=== PATIENT | female | born 1965 | race African-American/Black ===

== ENCOUNTER 2016-07-03 08:06 | Observation (INO) | payer OTHER ==
[2016-07-03] VITALS (12 sets, daily range): BP systolic 111–136; BP diastolic 62–96
[~2016-07-03] VITALS: Ht 154.9 cm; Wt 70.8 kg
[~2016-07-03 08:06] MED LIST: BUPIVACAINE-EPI 0.25%-1:200000 MPF 30 ML VIAL. ONE; CEFAZOLIN 1GM IVPB FOR OMNI 50 ML IV PRN; CEFOXITIN 1GM IVPB FOR OMNI 50 ML IV PRN; DIPH25CA58 PO; ESTROGENS, CONJ VAGINAL CREAM 30GM TUBE. ONE; FENTANYL PF 100 MCG/2 ML VIAL. IV PRN; HYDR-971 PO; HYDROMORPHONE 2 MG/ML VIAL. IV PRN; IBUP200T43 PO; LIDOCAINE 1% 1 ML SYRINGE. ID PRN; LIDOCAINE 1%/EPI 1:100,000 20 ML VIAL. ONE; METHYLENE BLUE 1% 1 ML VIAL. ONE; ONDA8TAB9 PO; ONDANSETRON PF 4 MG/2 ML VIAL. IV PRN; PRED-220 PO; PRED20TA PO; PROCHLORPERAZINE 10 MG/2 ML VIAL. IV PRN; RANI150T6 PO; SURGICEL HEMOSTAT 4X8 EACH. ONE
[2016-07-03] MEDS: IV RINGERS,LACTATED 1000ML 1,000 ML IV SCH ×2 (08:42→15:53)
[2016-07-03] MEDS ORDERED: ONDANSETRON PF 4 MG/2 ML VIAL. ONE (08:48)
[2016-07-03] MEDS ORDERED: FENTANYL PF 100 MCG/2 ML VIAL. ONE ×2 (08:48→11:54)
[2016-07-03] MEDS ORDERED: LIDOCAINE 2% 100 MG/5 ML DISP.SYRIN. ONE (08:48)
[2016-07-03] MEDS ORDERED: PROPOFOL 20 ML IV ONE (08:48)
[2016-07-03] MEDS ORDERED: ROCURONIUM 50 MG/5 ML VIAL. ONE (08:48)
[2016-07-03] MEDS ORDERED: MIDAZOLAM HCL 2 MG/2 ML VIAL. ONE (08:48)
[2016-07-03] MEDS ORDERED: DEXAMETHASONE SOD PHOS 20 MG/5 ML VIAL. ONE (08:48)
[2016-07-03] MEDS ORDERED: CEFAZOLIN 1GM IVPB FOR OMNI 50 ML IV ONE ×2 (08:54→09:15)
[2016-07-03] MEDS ORDERED: HYDROCORTISONE SOD SUCC/PF 100 MG/2 ML VIAL. ONE (09:17)
[2016-07-03 09:43] LABS: NEG OBC UR NEG; POS OBC UR POS
[2016-07-03 09:46] LABS: BASO % 0 % (0-3); EOS % 0 % (0-3); HEMATOCRIT 37.5 % (36.0-47.0); LYMPH # 0.7 x10^3/uL (1.0-4.8); LYMPH % 5 % (24-48); MEAN CORPUSCULAR HEMOGLOBIN 28 pg (25-35); MEAN CORPUSCULAR HGB CONC 32 g/dL (31-37); MEAN CORPUSCULAR VOLUME 87 fL (79-100); MONO % 4 % (0-9); NEUT % 91 % (31-73); PLATELET COUNT 394 x10^3/uL (140-400); RED BLOOD COUNT 4.32 x10^6/uL (3.50-5.40); RED CELL DISTRIBUTION WIDTH 15.4 % (11.5-14.5); WHITE BLOOD COUNT 15.1 x10^3/uL (4.0-11.0)
[2016-07-03] MEDS ORDERED: FAMOTIDINE 20 MG/2 ML VIAL ONE (09:55)
[2016-07-03] MEDS ORDERED: GLYCOPYRROLATE 1 MG/5 ML VIAL. ONE (10:26)
[2016-07-03] MEDS ORDERED: NEOSTIGMINE METHYLSULFATE 5 MG/5 ML SYRINGE. ONE (10:27)
[2016-07-03] MEDS ORDERED: SEVOFLURANE 61 TO 120 MINUTES. IH ONE (10:27)
[2016-07-03 11:06] LABS: PLT ESTIMATE ADEQUATE (ADEQUATE)
[2016-07-03 11:07] LABS: ANISOCYTOSIS SLIGHT
[2016-07-03 11:08] LABS: TOXIC GRANULATION PRESENT
[2016-07-03] MEDS ORDERED: KETOROLAC 30 MG/ML SYRINGE FOR OR. INJ ONE (11:09)
[2016-07-03] MEDS ORDERED: SEVOFLURANE > 120 MINUTES. IH ONE (11:54)
--- NOTE | 2016-07-03 12:08 | PDOC ---
BRIEF OPERATIVE NOTE Pre-Op Diagnosis 1. Fibroids 2. AUB Post-Op Diagnosis Same Procedure Performed LAVH & BSO Surgeon Dr. Lauren Anesthesia Type: General Blood Loss 100 ml Specimens Obtained uterus, cervix, nidia. fallopian tubes and ovaries Findings enlarged, fibroid uterus, nml fallopian tubes and ovaries nidia. Complications none Additional Remarks pt. VALORIE Obregon Jr, MD Jul 03, 2016 12:08
[2016-07-03] MEDS ORDERED: ZOLPIDEM 5 MG TABLET. PO PRN (12:15)
[2016-07-03] MEDS ORDERED: SIMETHICONE 80 MG TAB.CHEW PO PRN (12:15)
[2016-07-03] MEDS ORDERED: DIPHENHYDRAMINE HCL 25 MG CAPSULE PO PRN (12:15)
[2016-07-03] MEDS ORDERED: DEXTROSE 50% 25 GM / 50ML DISP.SYRIN. IV PRN (12:15)
[2016-07-03] MEDS ORDERED: 0.9 % SODIUM CHLORIDE 10 ML DISP.SYRIN. IV PRN (12:15)
[2016-07-03] MEDS ORDERED: CALCIUM CARBONATE 500 MG TAB.CHEW PO PRN (12:15)
[2016-07-03] MEDS ORDERED: PROCHLORPERAZINE 10 MG/2 ML VIAL. IV PRN (12:15)
[2016-07-03] MEDS ORDERED: DIPHENHYDRAMINE 50 MG/ML VIAL IV PRN (12:15)
[2016-07-03] MEDS ORDERED: ONDANSETRON PF 4 MG/2 ML VIAL. IV PRN (12:15)
[2016-07-03] MEDS ORDERED: KETOROLAC TROMETHAMINE 30 MG/ML SYRINGE. IV PRN (12:15)
[2016-07-03] MEDS: FENTANYL PF 100 MCG/2 ML VIAL. IV PRN ×2 (12:57→13:06)
[2016-07-03] MEDS: MORPHINE SULFATE 2 MG/ML DISP.SYRIN. IV PRN ×2 (13:22→13:34)
[2016-07-03] MEDS: GABAPENTIN 300 MG CAPSULE. PO SCH ×2 (14:01→22:05)
[2016-07-03] MEDS ORDERED: HYDROMORPHONE 2 MG/ML VIAL. IV PRN (16:45)
[2016-07-04 00:52] VITALS: BP 130/77
[2016-07-04] MEDS: OXYCODONE/APAP 5/325 TABLET. PO PRN ×2 (03:37→10:16)
--- NOTE | 2016-07-04 04:34 | OP ---
DATE OF SURGERY: PREOPERATIVE DIAGNOSES: 1. Fibroids. 2. Abnormal uterine bleeding. POSTOPERATIVE DIAGNOSES: 1. Fibroids. 2. Abnormal uterine bleeding. PROCEDURE: LAVH and BSO. SURGEON: Valorie Lauren MD ANESTHESIA: GETA. ESTIMATED BLOOD LOSS: 100 mL. COMPLICATIONS: None. FINDINGS: Enlarged fibroid uterus, normal fallopian tubes and ovaries bilaterally. SUMMARY: A 50-year-old with long history of abnormal uterine bleeding and fibroid uterus, requiring hysterectomy. The patient was counseled on risks, benefits and expectations of LAVH and BSO and voiced a clear understanding to proceed. DESCRIPTION OF PROCEDURE: The patient was taken to surgery suite and placed in dorsal lithotomy position. She was prepped with Betadine solution and draped in sterile fashion, also prepped with ChloraPrep for abdominal prep. The internal vaginal prep was done with the hypoallergenic soap. So after adequate anesthesia, bivalve speculum was placed vaginally. Anterior lip of the cervix grasped with a single tooth tenaculum. The Valtchev uterine manipulator was then placed. The bivalve speculum was removed. Attention was now placed on abdomen. Small transverse skin incision was made just 2 fingerbreadths below the left subcostal margin with a scalpel. Veress needle was then placed through the subcostal margin of the incision site. The abdomen was allowed to insufflate up to 1-1/2 liters CO2 gas. The Veress needle was then removed, 5 mm trocar was placed. Scope was positioned. The uterus appeared very enlarged with multiple fibroids throughout the uterus. Fallopian tubes and ovaries appeared normal bilaterally. An incision made just below the umbilicus with scalpel as well as in the left lower quadrant and 5 mm trocars were placed respectively. With the aid of Ariel graspers and the EnSeal device, the right round ligament was coagulated and dissected. The right infundibulopelvic ligament was coagulated and dissected. A portion of the right broad ligament was coagulated and dissected. Same process took place for the left adnexa. Bladder flap was partially created with blunt dissection along with EnSeal device and hydrodissection. The uterus was very enlarged and difficult to mobilize. Therefore, we proceeded vaginally. Weighted speculum and curved Huntington placed vaginally. The single tooth tenaculum and Valtchev uterine manipulator were both removed. Stella clamps were placed on the anterior and posterior lip of the cervix. Cervix was injected with 1% lidocaine with epinephrine in circumferential manner. Bovie cautery was utilized to circumscribe the cervix. The vaginal mucosa then dissected away from the lower uterine segment using blunt dissection with a moist Ray-Vernell. The parametrial tissue was clamped bilaterally with curved Annia clamps, cut and suture ligated with 2-0 Vicryl suture. The posterior cul-de-sac was entered sharply with curved Vail scissors. The long weighted speculum was then placed. Uterosacral ligaments were clamped bilaterally, cut, and suture ligated. Cardinal ligaments clamped bilaterally, cut, and suture ligated. Two additional pedicles were taken just adjacent to the uterus, which were clamped, cut, and suture ligated. The uterus was then bivalved. Multiple fibroids were then enucleated as well as ____ to collapse the uterus. This was done until the uterus was removed in its entirety along with both fallopian tubes and ovaries. The pedicles were hemostatic. A modified Reyes's culdoplasty was performed incorporating the uterosacral ligaments bilaterally. The remainder of the vaginal cuff was reapproximated using 2-0 Vicryl suture in a [id number] manner. A Premarin soaked vaginal packing was then placed. Attention was once again placed on abdomen. The abdomen was allowed to insufflate up to 1-1/2 liters of CO2 gas. The scope was positioned. The posterior vaginal cuff was visualized and the pedicles were hemostatic. There was some peritoneal oozing on the left pelvic sidewall in which Leon was placed and then followed by 5 mL of FloSeal. The area was hemostatic. The trocars were then removed under direct visualization. The abdomen was allowed to deflate as much as possible along with mechanical manipulation. The three skin incisions were reapproximated using 4-0 Vicryl suture in subcuticular manner. A 0.25% Marcaine with epinephrine was injected at each incision site. The patient tolerated the procedure well and was taken to recovery room in stable condition. Sponge and needle counts correct x 3. VALORIE LAUREN MD DR: BUZZ/aleshia JOB#: [id number] / [id number]
[2016-07-04 04:50] VITALS: BP 111/72
[2016-07-04] MEDS: GABAPENTIN 300 MG CAPSULE. PO SCH (06:01)
[2016-07-04 06:42] LABS: BASO % 0 % (0-3); EOS % 0 % (0-3); HEMATOCRIT 30.1 % (36.0-47.0); HEMOGLOBIN 9.6 g/dL (12.0-15.5); LYMPH # 1.1 x10^3/uL (1.0-4.8); LYMPH % 7 % (24-48); MEAN CORPUSCULAR HEMOGLOBIN 28 pg (25-35); MEAN CORPUSCULAR HGB CONC 32 g/dL (31-37); MEAN CORPUSCULAR VOLUME 87 fL (79-100); MONO % 6 % (0-9); NEUT % 87 % (31-73); PLATELET COUNT 319 x10^3/uL (140-400); RED BLOOD COUNT 3.44 x10^6/uL (3.50-5.40); RED CELL DISTRIBUTION WIDTH 15.6 % (11.5-14.5); WHITE BLOOD COUNT 15.6 x10^3/uL (4.0-11.0)
[2016-07-04] MEDS ORDERED: PREDNISONE 10 MG TABLET PO SCH (08:00)
[2016-07-04] MEDS ORDERED: FLU VACC QUAD 2016-17 (36MOS+)/PF 0.5 ML SYRINGE. VAX IM ONE (09:00)
--- NOTE | 2016-07-04 13:17 | PDOC ---
SURGICAL PROGRESS NOTE Subjective Pt. feeling well. Pain controlled. Pt. ambulating, voiding and tolerating regular diet. Vital Signs Vital Signs Date Time Temp Pulse Resp B/P Pulse Ox O2 Delivery O2 Flow Rate FiO2 07/04/16 04:50 98.8 85 18 111/72 98 Room Air 98.8 07/04/16 03:37 1.0 I&O Intake and Output 07/04/16 07:00 Intake Total 1261 ml Output Total 3345 ml Balance -2084 ml Intake Oral 461 ml IV Total 800 ml Output Urine Total 3345 ml PATIENT HAS A ANNA: No General: Alert, Oriented X3, Cooperative HEENT: Atraumatic Lungs: Clear to auscultation Heart: Regular rate Abdomen: Normal bowel sounds, Soft Psych/Mental Status: Mental status NL Labs Laboratory Tests Test 07/03/16 08:20 07/03/16 08:40 07/04/16 04:52 Urine Test Negative (NEG) White Blood Count 15.1x10^3/uL (4.0-11.0) 15.6x10^3/uL (4.0-11.0) Red Blood Count 4.32x10^6/uL (3.50-5.40) 3.44x10^6/uL (3.50-5.40) Hemoglobin 12.0g/dL (12.0-15.5) 9.6g/dL (12.0-15.5) Hematocrit 37.5% (36.0-47.0) 30.1% (36.0-47.0) Mean Corpuscular Volume 87fL (79-100) 87fL (79-100) Mean Corpuscular Hemoglobin 28pg (25-35) 28pg (25-35) Mean Corpuscular Hemoglobin Concent 32g/dL (31-37) 32g/dL (31-37) Red Cell Distribution Width 15.4% (11.5-14.5) 15.6% (11.5-14.5) Platelet Count 394x10^3/uL (140-400) 319x10^3/uL (140-400) Neutrophils (%) (Auto) 91% (31-73) 87% (31-73) Lymphocytes (%) (Auto) 5% (24-48) 7% (24-48) Monocytes (%) (Auto) 4% (0-9) 6% (0-9) Eosinophils (%) (Auto) 0% (0-3) 0% (0-3) Basophils (%) (Auto) 0% (0-3) 0% (0-3) Neutrophils # (Auto) 13.8x10^3uL (1.8-7.7) 13.5x10^3uL (1.8-7.7) Lymphocytes # (Auto) 0.7x10^3/uL (1.0-4.8) 1.1x10^3/uL (1.0-4.8) Monocytes # (Auto) 0.6x10^3/uL (0.0-1.1) 1.0x10^3/uL (0.0-1.1) Eosinophils # (Auto) 0.0x10^3/uL (0.0-0.7) 0.0x10^3/uL (0.0-0.7) Basophils # (Auto) 0.0x10^3/uL (0.0-0.2) 0.0x10^3/uL (0.0-0.2) Segmented Neutrophils % 87% (35-66) Lymphocytes % 10% (24-48) Monocytes % 3% (0-10) Toxic Granulation Present Platelet Estimate Adequate (ADEQUATE) Anisocytosis Slight Laboratory Tests Test 07/04/16 04:52 White Blood Count 15.6x10^3/uL (4.0-11.0) Red Blood Count 3.44x10^6/uL (3.50-5.40) Hemoglobin 9.6g/dL (12.0-15.5) Hematocrit 30.1% (36.0-47.0) Mean Corpuscular Volume 87fL (79-100) Mean Corpuscular Hemoglobin 28pg (25-35) Mean Corpuscular Hemoglobin Concent 32g/dL (31-37) Red Cell Distribution Width 15.6% (11.5-14.5) Platelet Count 319x10^3/uL (140-400) Neutrophils (%) (Auto) 87% (31-73) Lymphocytes (%) (Auto) 7% (24-48) Monocytes (%) (Auto) 6% (0-9) Eosinophils (%) (Auto) 0% (0-3) Basophils (%) (Auto) 0% (0-3) Neutrophils # (Auto) 13.5x10^3uL (1.8-7.7) Lymphocytes # (Auto) 1.1x10^3/uL (1.0-4.8) Monocytes # (Auto) 1.0x10^3/uL (0.0-1.1) Eosinophils # (Auto) 0.0x10^3/uL (0.0-0.7) Basophils # (Auto) 0.0x10^3/uL (0.0-0.2) Problem List Problems Medical Problems: (1) Abnormal uterine bleeding (AUB) Status: Acute (2) Fibroid uterus Status: Acute Assessment/Plan POD#1 s/p LAVH & BSO D/c home. Problems: VALORIE WILLIAMSON Jr, MD Jul 04, 2016 13:17
--- NOTE | 2016-07-04 13:18 | DISCH ---
DISCHARGE INSTRUCTIONS Condition on Discharge Condition on Discharge: Stable Activity After Discharge Activity Instructions for Disc: Activity as tolerated Lifting Instructions after Dis: No heavy lifting Driving Instructions after Dis: Do not drive today Diet after Discharge Diet after Discharge: Regular Contacting the DRBilly after DC Call your doctor for: Concerns you may have Follow-Up Follow Up With: Dr. Lauren in 2 weeks. VALORIE LAUREN Jr, MD Jul 04, 2016 13:18
[2016-07-04] MEDS ORDERED: DOCU-27 PO (13:19)
[2016-07-04] MEDS ORDERED: OXYC-323 PO (13:19)
[2016-07-04] MEDS ORDERED: IBUP-1060 PO (13:19)
[2016-07-04 14:45] VITALS: BP 118/72
--- NOTE | 2016-07-07 14:10 | PATHOLOGY ---
PATHOLOGY REPORT * * * * * * * * FINAL DIAGNOSIS: Segments of uterine corpus with attached bilateral fallopian tubes and ovaries and detached uterine cervix, laparoscopic-assisted vaginal hysterectomy with bilateral salpingo-oophorectomy: - Leiomyomas, uterine corpus (uterine weight 996 grams). - Mild chronic cervicitis with focal squamous metaplasia. - Secretory pattern endometrium with focal chronic endometritis. - Adenomyosis, uterine corpus, subbasal, focal. - Paratubal cyst, side indeterminate. - Cystic follicles of ovaries. COMMENT: There is no evidence of malignancy. (JPM:; d/t: 07/07/16) REPORT ELECTRONICALLY SIGNED BY: Jeremy Spangler M.D. DATE/TIME: 07/07/2016 14:09 * * * * * * * * GROSS PATHOLOGY: The specimen is received in formalin labeled "Elvia Rocha, uterus, cervix, bilateral fallopian tubes, bilateral ovaries". Received is a severely torn uterine corpus admixed with multiple segments of white-alvarado fibrous tissue measuring 25.7 x 17.7 x 9.5 cm in aggregate dimensions, and having an aggregate weight of 996 g and attached adnexa weighing 10 and 11 g. The uterine serosa is pink-alvarado, smooth and glistening in appearance. A scant amount of possible pale alvarado endometrium is present, measuring 0.1 cm in thickness. The segments of fibrous tissue range in size from 0.7 to approximately 7.8 cm. The 10 g adnexa consists of a fimbriated fallopian tube measuring 1.8 cm in length by 0.8 cm in diameter attached to a 2.7 x 2.0 x 1.4 cm ovary. Fallopian tube appears grossly unremarkable and sectioning through the ovary reveals a single unilocular cystic structure measuring 0.6 cm as well as corpora lutea ranging in size from 0.3 to 0.7 cm. The 11 g adnexa consists of a fimbriated fallopian tube measuring 1.9 cm in length by 0.7 cm in diameter attached to a 3.1 x 2.4 x 2.3 cm ovary. The fallopian tube appears grossly unremarkable and sectioning through the ovary reveals multiple cystic structures ranging in size from 0.3 to 0.5 cm filled with blood-tinged fluid. The remaining cut surfaces display corpora lutea ranging in size from 0.3 to 0.6 cm. Also received within the specimen container is a previously longitudinally bisected cervical stump with attached lower uterine segment measuring 7.7 x 3.2 x 3.2 cm upon reconstruction and having an aggregate weight of 45 g. The 0.5 cm cervical os is surrounded by pale alvarado, smooth ectocervical mucosa. The segment cannot be oriented. The specimen is submitted representatively as follows: A1-A2 cervix and opposite cervix A3-A4 financial services sales representative sections of possible endomyometrium A5 financial services sales representative sections of fibroids A6 10 g adnexa A7 11 g adnexa. (CAA; 07/04/2016) INITIAL CPT CODE(S): A; 07800 Professional services performed [place] [address] Technical services performed by [facility] at [address] [place] [address], [facility] [address] [address]. SPECIMEN(S) RECEIVED: A.Uterus, cervix, bilateral fallopian tubes, bilateral ovaries CLINICAL HISTORY: Fibroids and abnormal uterine bleeding PATIENT: ELVIA ROCHA Judah /AGE: [id number] 1965 (Age: 50) PATIENT #: [id number] ALT CASE #: SPECIMEN COLLECTION DATE: 07/03/2016 SPECIMEN RECEIVED DATE: 07/03/2016 [facility] - [address] [place] [address] - PHONE: [phone] * * * END OF REPORT * * *
== END 2016-07-04 15:04 | disposition home or self-care (01) ==
LOC: SURG 08:06 → 3 NORTH 12:30
PROVIDERS: ADMIT Obstetrics & Gynecology; ATTEND Obstetrics & Gynecology
DX: D25.9 Leiomyoma of uterus, unspecified (principal); N93.9 Abnormal uterine and vaginal bleeding, unspecified; Z23 Encounter for immunization
CPT/HCPCS: 36415; 58554; 81025; 85007; 85027; 86850; 86900; 86901; 90471; 90686; 96374; 96375; A4215; G0378; G0379; J0690; J1100; J1170; J1720; J1885; J2250; J2270; J2405; J2704; J2710; J3010; J3490; J7030; J7120; J7512; S0028; 88307; J0694; Q9968

== ENCOUNTER 2016-07-24 23:17 | Emergency (ER) | payer OTHER ==
[~2016-07-24] VITALS: Ht 154.9 cm; Wt 66.2 kg
[~2016-07-24 23:17] MED LIST changes: -BUPIVACAINE-EPI 0.25%-1:200000 MPF 30 ML VIAL. ONE; -CEFAZOLIN 1GM IVPB FOR OMNI 50 ML IV PRN; -CEFOXITIN 1GM IVPB FOR OMNI 50 ML IV PRN; +DOCU-27 PO; -ESTROGENS, CONJ VAGINAL CREAM 30GM TUBE. ONE; -FENTANYL PF 100 MCG/2 ML VIAL. IV PRN; -HYDROMORPHONE 2 MG/ML VIAL. IV PRN; +IBUP-1060 PO; -LIDOCAINE 1% 1 ML SYRINGE. ID PRN; -LIDOCAINE 1%/EPI 1:100,000 20 ML VIAL. ONE; -METHYLENE BLUE 1% 1 ML VIAL. ONE; -ONDANSETRON PF 4 MG/2 ML VIAL. IV PRN; +OXYC-323 PO; -PROCHLORPERAZINE 10 MG/2 ML VIAL. IV PRN; -SURGICEL HEMOSTAT 4X8 EACH. ONE
[2016-07-25 00:36] LABS: BASO # 0.1 x10^3/uL (0.0-0.2); BASO % 1 % (0-3); EOS % 6 % (0-3); HEMOGLOBIN 11.3 g/dL (12.0-15.5); LYMPH # 1.1 x10^3/uL (1.0-4.8); LYMPH % 17 % (24-48); MEAN CORPUSCULAR HEMOGLOBIN 28 pg (25-35); MEAN CORPUSCULAR HGB CONC 32 g/dL (31-37); MEAN CORPUSCULAR VOLUME 87 fL (79-100); MONO % 9 % (0-9); NEUT % 68 % (31-73); PLATELET COUNT 428 x10^3/uL (140-400); RED BLOOD COUNT 4.02 x10^6/uL (3.50-5.40); RED CELL DISTRIBUTION WIDTH 15.1 % (11.5-14.5); WHITE BLOOD COUNT 6.6 x10^3/uL (4.0-11.0)
[2016-07-25 00:46] LABS: CALCIUM 8.8 mg/dL (8.5-10.1); CREATININE 0.8 mg/dL (0.6-1.0); GFR 92.6; POTASSIUM 3.4 mmol/L (3.5-5.1)
[2016-07-25 00:51] LABS: ALBUMIN 3.1 g/dL (3.4-5.0); ALBUMIN/GLOBULIN RATIO 0.9 (1.0-1.7); TOTAL BILIRUBIN 0.2 mg/dL (0.2-1.0); TOTAL PROTEIN 6.7 g/dL (6.4-8.2)
[2016-07-25] MEDS ORDERED: CONTRAST GIVEN MC PRN (01:30)
[2016-07-25] MEDS ORDERED: IOHEXOL 300 MG/ML 75 ML VIAL IV ONE (02:00)
--- NOTE | 2016-07-25 02:08 | RAD ---
PROCEDURE Right upper extremity venous Doppler HISTORY rue pain and swelling x 1 week
recent flu shot in this arm

no evidence of dvt TECHNIQUE Real-time ultrasound with compression, color Doppler and spectral Doppler with augmentation were utilized to evaluate the veins of the right upper extremity COMPARISON None FINDINGS The right jugular vein is compressible and has flow with color imaging. Right subclavian vein has flow with color imaging. The right axillary and brachial veins are compressible and have flow with color imaging. There is normal antegrade flow with augmentation. The right basilic and cephalic veins are compressible and have flow with color imaging. Radial and ulnar veins of the forearm have flow with color imaging. IMPRESSION Right upper extremity venous Doppler negative for acute deep venous thrombosis. Electronically signed by: Gene Sumner MD (Jul 25, 2016 02:06:04)
--- NOTE | 2016-07-25 02:18 | RAD ---
PROCEDURE CT of the neck with contrast, CT scan of the chest with contrast HISTORY R/O SVC SYNDROME; FACIAL AND UPPER EXTREMITY SWELLING; OMNI 300, 75ML TECHNIQUE CT scan of the neck was done using 75 mL Omnipaque [address] scan of the chest was done following the CT scan of the neck with the same contrast. One or more of the following individualized dose reduction techniques were utilized for this examination: 1. Automated exposure control; 2. Adjustment of the mA and/or kV according to patient size; 3. Use of iterative reconstruction technique.One or more of the following individualized dose reduction techniques were utilized for this examination: 1. Automated exposure control; 2. Adjustment of the mA and/or kV according to patient size; 3. Use of iterative reconstruction technique. COMPARISON None FINDINGS CT neck The visualized upper lobes of the lungs are clear. There are 2 low-density nodules in the left thyroid measuring 1.1 centimeters and 0.5 centimeter. There is no adenopathy noted in the neck. There is normal opacification of the left subclavian vein in both jugular veins without thrombosis. The right subclavian vein is not as well past opacified due to the due to the timing bolus but appears normal as well. Images. Above the superior vena cava. Carotid arteries are widely patent without stenosis a mass is not identified in the neck. There is extensive degenerative disc disease in the cervical spine with disc space narrowing at multiple levels. CT chest CT scan of the chest was done following the CT of the neck. Superior vena cava is normal a opacified there is mild narrowing of the superior vena cava just above the right atrium but there is no mass or adenopathy. At there is no axillary adenopathy. The visualized portions of the liver and spleen are normal. Adrenal glands are normal. Upper poles the kidneys are unremarkable. The lungs are free of infiltrates. There is no pleural effusion. IMPRESSION No mass or adenopathy noted in the neck Left thyroid nodules No infiltrates noted in the lungs Mild narrowing of the superior vena cava just above the right atrium but no mass or adenopathy in the mediastinum or evidence to suggest superior vena cava syndrome No pleural effusion or other acute finding Electronically signed by: Gene Sumner MD (Jul 25, 2016 02:17:26)
[2016-07-25] MEDS ORDERED: HYDR-2678 PO (02:58)
--- NOTE | 2016-07-25 02:58 | PHYS DOC ---
Past Medical History Past Medical History: Depression Additional Past Medical Histor: FIBROID UTERUS Past Surgical History: Hysterectomy, Tubal ligation Additional Past Surgical Histo: R arm, r foot surgery Alcohol Use: Occasionally Drug Use: None Adult General Chief Complaint Chief Complaint: LOWER EXTREMITY EDEMA HPI HPI Patient is a 50 year old female who presents here today complaining of swelling to her right upper extremity. Patient reports that this is going on for several weeks now. Patient reports that she has seen her family doctor for this and they have not initiated workup as of yet. Patient denies any other symptomology at this time. Patient has any fevers shakes chills. Patient has any cough cold runny nose. Patient reports that she feels that she is swollen in her right chest as well as her right upper extremity. Patient has any trauma. Asians physical exam is significant for swelling to her right upper extremity. As well as swelling to her right chest area. Patient does not have any plethora. Patient is CT scan of her thorax to rule out abscess superior vena cava syndrome. Patient's CT scan was unremarkable. Patient had an ultrasound of her right upper extremity which revealed no DVT. Etiology of the patient's edema is unclear. Patient has been referred to her primary care physician for further evaluation of her symptoms. Patient likely to be followed up by her primary care physician refer to specialist to further determine the cause of the symptoms. Review of Systems Review of Systems Constitutional: Denies fever or chills [] Eyes: Denies change in visual acuity, redness, or eye pain [] All other review systems are negative except as documented in the history of present illness portion. Current Medications Current Medications Current Medications Medications (Trade) Dose Ordered Sig/Sandip Start Time Stop Time Status Last Admin Dose Admin Info (Do NOT chart on this entry -- for MONITORING) 1 each PRN DAILY PRN 07/25/16 01:30 07/25/16 03:47 DC Iohexol (Omnipaque 300 Mg/ml) 75 ml 1X ONCE 07/25/16 02:00 07/25/16 02:01 DC 07/25/16 01:41 75 ML Allergies Allergies Allergies Coded Allergies Type Severity Reaction Last Updated Verified Iodinated Contrast Media - Oral and Allergy Intermediate Rash 07/25/16 Yes Physical Exam Physical Exam Constitutional: Well developed, well nourished, no acute distress, non-toxic appearance. [] HENT: Normocephalic, atraumatic, bilateral external ears normal, oropharynx moist, no oral exudates, nose normal. [] Eyes: PERRLA, EOMI, conjunctiva normal, no discharge. [] Neck: Normal range of motion, no tenderness, supple, no stridor. [] Cardiovascular:Heart rate regular rhythm Lungs & Thorax: Bilateral breath sounds clear to auscultation [] Abdomen: Bowel sounds normal, soft, no tenderness, no masses, no pulsatile masses. [] Skin: Warm, dry, no erythema, no rash. [] Back: No tenderness, no CVA tenderness. [] Extremities: No tenderness, no cyanosis, no clubbing, ROM intact, swelling to right upper extremity. Pulses intact. Good capillary refill. Sensation intact. Patient denies any trauma. Neurologic: Alert and oriented X 3, normal motor function, normal sensory function, no focal deficits noted. [] Psychologic: Affect normal, judgement normal, mood normal. [] Current Patient Data Vital Signs Vital Signs Date Time Temp Pulse Resp B/P Pulse Ox O2 Delivery O2 Flow Rate FiO2 07/25/16 03:07 113 20 151/107 98 Room Air 07/24/16 23:24 98.5 98.5 Lab Values Laboratory Tests Test 07/25/16 00:20 White Blood Count 6.6x10^3/uL (4.0-11.0) Red Blood Count 4.02x10^6/uL (3.50-5.40) Hemoglobin 11.3g/dL (12.0-15.5) L Hematocrit 35.0% (36.0-47.0) L Mean Corpuscular Volume 87fL (79-100) Mean Corpuscular Hemoglobin 28pg (25-35) Mean Corpuscular Hemoglobin Concent 32g/dL (31-37) Red Cell Distribution Width 15.1% (11.5-14.5) H Platelet Count 428x10^3/uL (140-400) H Neutrophils (%) (Auto) 68% (31-73) Lymphocytes (%) (Auto) 17% (24-48) L Monocytes (%) (Auto) 9% (0-9) Eosinophils (%) (Auto) 6% (0-3) H Basophils (%) (Auto) 1% (0-3) Neutrophils # (Auto) 4.5x10^3uL (1.8-7.7) Lymphocytes # (Auto) 1.1x10^3/uL (1.0-4.8) Monocytes # (Auto) 0.6x10^3/uL (0.0-1.1) Eosinophils # (Auto) 0.4x10^3/uL (0.0-0.7) Basophils # (Auto) 0.1x10^3/uL (0.0-0.2) D-Dimer (Martine) 11.09ug/mlFEU (0.00-0.50) H Sodium Level 142mmol/L (136-145) Potassium Level 3.4mmol/L (3.5-5.1) L Chloride Level 104mmol/L (98-107) Carbon Dioxide Level 32mmol/L (21-32) Anion Gap 6 (6-14) Blood Urea Nitrogen 15mg/dL (7-20) Creatinine 0.8mg/dL (0.6-1.0) Estimated GFR (Cockcroft-Gault) 92.6 BUN/Creatinine Ratio 19 (6-20) Glucose Level 100mg/dL (70-99) H Calcium Level 8.8mg/dL (8.5-10.1) Total Bilirubin 0.2mg/dL (0.2-1.0) Aspartate Amino Transferase (AST) 55U/L (15-37) H Alanine Aminotransferase (ALT) 40U/L (14-59) Alkaline Phosphatase 65U/L (46-116) Troponin I Quantitative < 0.017ng/mL (0.000-0.055) CN-Qeo-W-Type Natriuretic Peptide 15pg/mL (0-124) Total Protein 6.7g/dL (6.4-8.2) Albumin 3.1g/dL (3.4-5.0) L Albumin/Globulin Ratio 0.9 (1.0-1.7) L Laboratory Tests 07/25/16 00:20 Laboratory Tests 07/25/16 00:20 EKG EKG [] Radiology/Procedures Radiology/Procedures [] Course & Med Decision Making Course & Med Decision Making Pertinent Labs and Imaging studies reviewed. (See chart for details) [] Dragon Disclaimer Dragon Disclaimer This electronic medical record was generated, in whole or in part, using a voice recognition dictation system. Departure Departure Impression: Primary Impression: Edema of upper extremity Disposition: HOME, SELF-CARE Condition: STABLE Referrals: NO PCP (PCP) Patient Instructions: Peripheral Edema Additional Instructions: Please follow up with Dr. Noland as scheduled. Return to the ER sooner if they have any new symptoms or if the swelling increases. Scripts Hydrocodone/Acetaminophen (Lortab 5-325 mg Tablet)1 Each Tablet1 Tab PO PRN Q6HRS PRN PAIN #10 TAB Prov:DAVID FERNANDEZ MD 07/25/16 DAVID FERNANDEZ MD Jul 25, 2016 02:58
[2016-07-25 03:07] VITALS: BP 151/107
--- NOTE | 2016-07-25 07:32 | RAD ---
Exam performed: One view chest. Indication: swelling rue Date of Service: 07/25/2016 2:12 AM Comparison: None available. Single AP upright portable view chest findings: Cardiomediastinal silhouette is within limits of normal. No acute infiltrates, effusion or pneumothorax is detected. The bony structures are normal. Impression: No acute cardiopulmonary process is detected.
== END 2016-07-25 03:22 | disposition home or self-care (01) ==
LOC: ER 23:17
DX: R60.0 Localized edema (principal); R22.2 Localized swelling, mass and lump, trunk; F32.9 Major depressive disorder, single episode, unspecified; Z91.041 Radiographic dye allergy status
CPT/HCPCS: 36415; 70491; 71010; 71260; 80053; 83880; 84484; 85027; 85379; 93971; 99285; Q9967

== ENCOUNTER 2018-03-01 15:38 | Emergency (ER) | payer OTHER ==
[~2018-03-01] VITALS: Ht 154.9 cm; Wt 77.1 kg
[~2018-03-01 15:38] MED LIST changes: +DOCU-109 PO; -DOCU-27 PO; +HYDR-2678 PO; -IBUP200T43 PO; +IBUP200T44 PO; +RANI150T21 PO; -RANI150T6 PO
[2018-03-01 16:10] VITALS: BP 130/87
--- NOTE | 2018-03-01 16:25 | RAD ---
AP and Lateral Views of the Chest 03/01/2018 4:07 PM Indication: COUGH Comparison: Chest radiograph July 25, 2016 Findings: There is no focal consolidation or infiltrate identified. The cardiomediastinal silhouette is within normal limits. There is no evidence of pneumothorax or pleural effusion. No acute osseous abnormalities are identified. Impression: No evidence of acute cardiopulmonary process. Electronically signed by: Jh John MD (03/01/2018 4:21 PM) [id number]
[2018-03-01] MEDS ORDERED: IPRATRPIUM/ALBUTEROL 0.5/2.5MG 3 ML NEBU. NEB ONE (16:45)
[2018-03-01] MEDS ORDERED: VENTOLIN HFA18 GM INH (16:49)
[2018-03-01] MEDS ORDERED: BENZ100C PO (16:49)
[2018-03-01] MEDS ORDERED: HYDR-971 PO (16:49)
--- NOTE | 2018-03-01 16:50 | PHYS DOC ---
Past Medical History Past Medical History: Depression Additional Past Medical Histor: FIBROID UTERUS Past Surgical History: Hysterectomy, Tubal ligation Additional Past Surgical Histo: R arm, r foot surgery Alcohol Use: Occasionally Drug Use: None Adult General Chief Complaint Chief Complaint: Congestion HPI HPI Patient is a 52 year old female with history of depression, ectopic dermatitis , fibromyalgia, who presents today complaining of a cough that has been going off for 3 days. Patient is also complaining of chest congestion. Denies any fever. She states she is currently out of her pain medications including hydrocodone. She states she plans to follow-up with Dr. gibbons her PCP as soon as possible patient denies any fever. Denies any chest pain or shortness of breath. Review of Systems Review of Systems Constitutional: Denies fever or chills [] Eyes: Denies change in visual acuity, redness, or eye pain [] HENT: Denies nasal congestion or sore throat [] Respiratory: Reports cough, denies shortness of breath [] Cardiovascular: No additional information not addressed in HPI [] GI: Denies abdominal pain, nausea, vomiting, bloody stools or diarrhea [] : Denies dysuria or hematuria [] Musculoskeletal: Denies back pain or joint pain [] Integument: Denies rash or skin lesions [] Neurologic: Denies headache, focal weakness or sensory changes [] All other systems were reviewed and found to be within normal limits, except as documented in this note. Current Medications Current Medications Current Medications Medications (Trade) Dose Ordered Sig/Sandip Start Time Stop Time Status Last Admin Dose Admin Albuterol/ Ipratropium (Duoneb) 3 ml 1X ONCE 03/01/18 16:45 03/01/18 16:46 DC 03/01/18 16:47 3 ML Allergies Allergies Allergies Coded Allergies Type Severity Reaction Last Updated Verified Iodinated Contrast Media - Oral and Allergy Intermediate Rash 07/25/16 Yes Physical Exam Physical Exam Constitutional: Well developed, well nourished, no acute distress, non-toxic appearance. [] HENT: Normocephalic, atraumatic, bilateral external ears normal, oropharynx moist, no oral exudates, nose normal. [] Eyes: PERRLA, EOMI, conjunctiva normal, no discharge. [] Neck: Normal range of motion, no tenderness, supple, no stridor. [] Cardiovascular:Heart rate regular rhythm, no murmur [] Lungs & Thorax: Bilateral breath sounds clear to auscultation [] Abdomen: Bowel sounds normal, soft, no tenderness, no masses, no pulsatile masses. [] Skin: Warm, dry, atopic dermatitis skin noted with variations in color/vitiligo included-chronic. Back: No tenderness, no CVA tenderness. [] Extremities: No tenderness, no cyanosis, no clubbing, ROM intact, no edema. [] Neurologic: Alert and oriented X 3, normal motor function, normal sensory function, no focal deficits noted. [] Psychologic: Affect normal, judgement normal, mood normal. [] Current Patient Data Vital Signs Vital Signs Date Time Temp Pulse Resp B/P (MAP) Pulse Ox O2 Delivery O2 Flow Rate FiO2 03/01/18 16:48 97 Room Air 03/01/18 16:10 98.9 100 12 130/87 (101) 98.9 EKG EKG [] Radiology/Procedures Radiology/Procedures [] Course & Med Decision Making Course & Med Decision Making Pertinent Labs and Imaging studies reviewed. (See chart for details) This is a 52-year-old female patient presenting to the ED today with symptoms consistent of bronchitis. Patient was given a DuoNeb treatment in the ED. Chest x-ray is negative for any acute findings. She is already on prednisone for dermatitis. She'll be discharged on albuterol inhaler, Tessalon Perles, and 10 tablets of Carlton. Ktracs shows she receives Carlton from Dr. Gibbons last Rx 2016. Staff Physician Addendum: I was working in the ER during the course of this patient's visit. I was available for consultation as needed, but I was not directly involved in the care of this patient. Dragon Disclaimer Dragon Disclaimer This electronic medical record was generated, in whole or in part, using a voice recognition dictation system. Departure Departure Impression: Primary Impression: Acute bronchitis Additional Impression: Chronic pain Disposition: 01 HOME, SELF-CARE Condition: STABLE Referrals: NO PCP (PCP) follow up in one week SIGRID GIBBONS MD follow up in one week Patient Instructions: Acute Bronchitis Additional Instructions: You were evaluated in the emergency room for chronic pain and acute bronchitis. Take the prescribed medications as ordered. Follow-up with your own doctor as soon as possible. Scripts Benzonatate (TESSALON PERLE) 100 Mg Capsule 1 CAP PO TID, #30 CAP Prov: YEMI BROOKS APRN 03/01/18 Albuterol Sulfate (VENTOLIN HFA INHALER) 18 Gm Hfa.aer.ad 2 PUFF INH QID for FOR ASTHMA, #1 INHALER 0 Refills Prov: YEMI BROOKS APRN 03/01/18 Hydrocodone/Apap 5-325 (NORCO 5-325 TABLET) 1 Each Tablet 1 TAB PO Q6HRS, #10 TAB Prov: YEMI BROOKS APRN 03/01/18 Problem Qualifiers Primary Impression: Acute bronchitis Bronchitis organism: unspecified organism Qualified Codes: J20.9 - Acute bronchitis, unspecified Additional Impression: Chronic pain Chronic pain type: other chronic pain Qualified Codes: G89.29 - Other chronic pain YEMI BROOKS APRN Mar 01, 2018 16:49 PHILL SHEPARD MD Mar 01, 2018 17:06
== END 2018-03-01 17:00 | disposition home or self-care (01) ==
LOC: ER 15:38
DX: J20.9 Acute bronchitis, unspecified (principal); G89.29 Other chronic pain; Z91.041 Radiographic dye allergy status
CPT/HCPCS: 71046; 94640; 99284; J7620

== ENCOUNTER 2019-05-10 13:53 | Emergency (ER) | payer OTHER, MEDICARE, MEDICAID ==
[~2019-05-10] VITALS: Ht 149.9 cm; Wt 77.1 kg
[~2019-05-10 13:53] MED LIST changes: +BENZ100C PO; +HYDR-3164 PO; -HYDR-971 PO; -OXYC-323 PO; +OXYC1TAB15 PO; +RANI-376 PO; -RANI150T21 PO; +VENTOLIN HFA18 GM INH
[2019-05-10 14:11] VITALS: BP 152/127
--- NOTE | 2019-05-10 14:48 | RAD ---
EXAM: Left great toe, 3 views. HISTORY: Trauma. COMPARISON: None. FINDINGS: 3 views of the left great toe are obtained. There is an oblique fracture of the first proximal phalanx with approximately 1 cortical width displacement along the fracture line. There is suspected intra-articular fracture line extension. No foreign body is seen. There is soft tissue swelling. IMPRESSION: Minimally displaced oblique fracture of the first proximal phalanx. Electronically signed by: Jonna Dozier MD (05/10/2019 2:45 PM) [place] [id number]
--- NOTE | 2019-05-10 15:31 | PHYS DOC ---
Past Medical History Past Medical History: Depression, Fibromyalgia Additional Past Medical Histor: FIBROID UTERUS Past Surgical History: Hysterectomy, Tubal ligation Additional Past Surgical Histo: R arm, r foot surgery Alcohol Use: Occasionally Drug Use: None Adult General Chief Complaint Chief Complaint: TOE PROBLEM HPI HPI Patient is a 53 year old AA female who presents to the emergency department with complaints of left great toe pain and bruising. Patient states she was outside when she slipped on some snow and ended up hitting her toe against a curb last night. She denies any head, neck, or back pain. Patient denies any numbness, tingling, or weakness. She currently rates her pain a 5 out of 10 on pain scale, she states the pain increases with movement. She states the pain seems better when she is at rest. All other ROS is neg unless otherwise noted in HPI. Review of Systems Review of Systems See Above Allergies Allergies Allergies Coded Allergies Type Severity Reaction Last Updated Verified Iodinated Contrast Media Allergy Intermediate Rash 07/25/16 Yes Physical Exam Physical Exam See Above Constitutional: Well developed, well nourished, no acute distress, non-toxic appearance. [] HENT: Normocephalic, atraumatic, bilateral external ears normal, nose normal. [] Eyes: PERRLA, EOMI, conjunctiva normal, no discharge. [] Neck: Normal range of motion, no stridor. [] Cardiovascular:Heart rate regular rhythm Lungs & Thorax: Respirations even and unlabored, no retractions, no respiratory distress Skin: Warm, dry, no erythema, no rash; bruising and 1+ edema noted to left great toe between the PIP and DIP. [] Extremities: Left great toe: TTP between DIP and PIP, no cyanosis, no clubbing, ROM limited due to pain, 1+ edema. [] Neurologic: Alert and oriented X 3, no focal deficits noted. [] Psychologic: Affect normal, judgement normal, mood normal. [] Current Patient Data Vital Signs Vital Signs Date Time Temp Pulse Resp B/P (MAP) Pulse Ox O2 Delivery O2 Flow Rate FiO2 05/10/19 14:11 97.9 89 16 152/127 (135) 97 Room Air 97.9 EKG EKG [] Radiology/Procedures Radiology/Procedures PROCEDURE: TOES LEFT EXAM: Left great toe, 3 views. HISTORY: Trauma. COMPARISON: None. FINDINGS: 3 views of the left great toe are obtained. There is an oblique fracture of the first proximal phalanx with approximately 1 cortical width displacement along the fracture line. There is suspected intra-articular fracture line extension. No foreign body is seen. There is soft tissue swelling. IMPRESSION: Minimally displaced oblique fracture of the first proximal phalanx.[] Course & Med Decision Making Course & Med Decision Making Pertinent Labs and Imaging studies reviewed. (See chart for details) [] Dragon Disclaimer Dragon Disclaimer This electronic medical record was generated, in whole or in part, using a voice recognition dictation system. Departure Departure Impression: Primary Impression: Fracture of great toe, left, closed Disposition: HOME, SELF-CARE Condition: STABLE Referrals: NO PCP (PCP) Patient Instructions: Roney Taping of Toes, Toe Fracture Additional Instructions: Fill prescription(s) and use as directed. Recommend application of ice, elevation, and rest of affected extremity. Roney tape your toes and wear the postop shoe that was placed until follow up appointment. Call Dr. Ash's office for follow up appointment this week. Return to the ER if your symptoms worsen. Scripts Naproxen (NAPROXEN) 500 Mg Tablet 1 TAB PO BID PRN for PAIN for 10 Days, #20 TAB 0 Refills Prov: ERICK MEZA FINGERNAIL TECHNICIAN 05/10/19 Problem Qualifiers Primary Impression: Fracture of great toe, left, closed Encounter type: initial encounter Phalanx: proximal Fracture alignment: displaced Qualified Codes: S92.412A - Displaced fracture of proximal phalanx of left great toe, initial encounter for closed fracture ERICK MEZA FINGERNAIL TECHNICIAN May 10, 2019 15:31
[2019-05-10] MEDS ORDERED: NAPR-514 PO (15:42)
== END 2019-05-10 16:30 | disposition home or self-care (01) ==
LOC: ER 13:53
DX: S92.412A Displaced fracture of proximal phalanx of left great toe, initial encounter for closed fracture (principal); F32.9 Major depressive disorder, single episode, unspecified; Z90.710 Acquired absence of both cervix and uterus; Z98.51 Tubal ligation status; Z98.890 Other specified postprocedural states; Z91.041 Radiographic dye allergy status; W01.0XXA Fall on same level from slipping, tripping and stumbling without subsequent striking against object, initial encounter; Y93.89 Activity, other specified; Y92.89 Other specified places as the place of occurrence of the external cause; Y99.8 Other external cause status
CPT/HCPCS: 73660; 99284

== ENCOUNTER 2020-01-27 13:26 | Emergency (ER) | payer MEDICARE, MEDICAID ==
[~2020-01-27] VITALS: Ht 154.9 cm; Wt 80.9 kg
[~2020-01-27 13:26] MED LIST changes: +NAPR-514 PO
[2020-01-27 13:50] VITALS: BP 199/98
--- NOTE | 2020-01-27 14:26 | PHYS DOC ---
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 She states she has an aching pain at but at times sharp shooting pain that goes down into her fingers that she rates 6 out of 10. She states that it is worse with movement. She is also 1 month ago she went to a [employer] and wore a week that she had bought from a store and she says she wore it for about 2 weeks and at that time she was having a lot of itching. She states since then she has been washing her hair every day and coming it out and she is seeing little red things in her home. She states that she feels bugs coming on her hair. On examination I do not see any bugs in her hair and there are no bald spots. She does have tenderness to the right anterior humerus and has full range of motion at the shoulder and elbow joints. No joint swelling. No joint laxity. Can make a full tight fist. Skin pink warm and dry. Radial pulse strong present. Cap refill less than 2 seconds. Patient denies chest pain, shortness of breath, abdominal pain, nausea, vomiting, diarrhea, vision changes, numbness or tingling, focal weakness, headache, dizziness, fever. Has a history of fibromyalgia, depression, hysterectomy, tubal ligation, fibroids in her uterus. (GIL ROMAN TUMBLING MACHINE OPERATOR) Review of Systems: Review of Systems: Constitutional: Denies fever or chills. [] Eyes: Denies change in visual acuity. [] HENT: Denies nasal congestion or sore throat. [] Respiratory: Denies cough or shortness of breath. [] Cardiovascular: Denies chest pain or edema. [] GI: Denies abdominal pain, nausea, vomiting, bloody stools or diarrhea. [] : Denies dysuria. [] Musculoskeletal: Denies back pain. Right shoulder and humerus joint pain. [] Integument: Denies rash. Scalp itching and feels like bugs are crawling [] Neurologic: Denies headache, focal weakness or sensory changes. [] Endocrine: Denies polyuria or polydipsia. [] Lymphatic: Denies swollen glands. [] Psychiatric: Denies depression or anxiety. [] (GIL ROMAN APRN) Heart Score: Risk Factors: Risk Factors: DM, Current or recent (<one month) smoker, HTN, HLP, family history of CAD, obesity. Risk Scores: Score 0 - 3: 2.5% MACE over next 6 weeks - Discharge Home Score 4 - 6: 20.3% MACE over next 6 weeks - Admit for Clinical Observation Score 7 - 10: 72.7% MACE over next 6 weeks - Early Invasive Strategies (GIL ROMAN APRN) Allergies: Allergies: Allergies Coded Allergies Type Severity Reaction Last Updated Verified Iodinated Contrast Media Allergy Intermediate Rash 07/25/16 Yes (GIL ROMAN APRN) Physical Exam: PE: Constitutional: Well developed, well nourished, no acute distress, non-toxic appearance. [] HENT: Normocephalic, atraumatic, bilateral external ears normal, oropharynx moist, no oral exudates, nose normal. [] Eyes: PERRLA, EOMI, conjunctiva normal, no discharge. [] Neck: Normal range of motion, no tenderness, supple, no stridor. [] Cardiovascular:Heart rate regular rhythm, no murmur [] Lungs & Thorax: Bilateral breath sounds clear to auscultation [] Abdomen: Bowel sounds normal, soft, no tenderness, no masses, no pulsatile masses. [] Skin: Warm, dry, no erythema, no rash. [] Back: Right anterior humerus tenderness, no CVA tenderness. [] Extremities: No tenderness, no cyanosis, no clubbing, ROM intact, no edema. [] Neurologic: Alert and oriented X 3, normal motor function, normal sensory function, no focal deficits noted. [] Psychologic: Affect normal, judgement normal, mood normal. [] (GIL ROMAN APRN) Current Patient Data: Vital Signs: Vital Signs Date Time Temp Pulse Resp B/P (MAP) Pulse Ox O2 Delivery O2 Flow Rate FiO2 01/27/20 13:50 97.3 85 12 199/98 (131) 98 Room Air 97.3 (GIL ROMAN APRN) EKG: EKG: [] (GIL ROMAN APRN) Radiology/Procedures: Radiology/Procedures: [] Impression: [facility] [address] [place] [address] IMAGING REPORT Signed PATIENT: SONU FELDER ACCOUNT: [id number] : 1965 LOCATION: ER AGE: 54 SEX: F EXAM STATUS: REG ER ORD. PHYSICIAN: GIL ROMAN APRN REASON: pain PROCEDURE: HUMERUS RIGHT Right shoulder 3 views: Reason for examination: Pain. No acute fracture or dislocation is seen. The bone density is normal. No abnormal periosteal reaction is seen. Joint spaces are maintained. IMPRESSION: No acute abnormality evident at the right shoulder. Right humerus 2 views: There is no evidence of fracture. The bone density is normal. No abnormal periosteal reaction is seen. Shoulder and elbow joints appear to be maintained. IMPRESSION: No acute abnormality seen at the right humerus. Electronically signed by: Homa Swartz MD (01/27/2020 3:06 PM) [facility] DICTATED and SIGNED BY: HOMA SWARTZ MD DATE: 01/27/20 1506 (GIL ROMAN APRN) Course & Med Decision Making: Course & Med Decision Making Pertinent Labs and Imaging studies reviewed. (See chart for details) See HPI. Alert and oriented x4. Ambulatory with a steady gait. Speaks in full complete sentences. Skin pink warm and dry. No shoulder or humerus bruising or abrasions or redness. X-ray show no acute finding. Patient will be given Permethrin topical for air. She can take ibuprofen for her arm and shoulder pain. [] (GIL ROMAN APRN) Dragon Disclaimer: Dragon Disclaimer: This electronic medical record was generated, in whole or in part, using a voice recognition dictation system. (GIL ROMAN APRN) Departure Departure Impression: Primary Impression: Shoulder pain, right Qualified Codes: M25.511 - Pain in right shoulder Additional Impressions: Pain of right humerus Itching Disposition: HOME, SELF-CARE Condition: STABLE Referrals: UNKNOWN PCP NAME (PCP) Patient Instructions: Contusion, Lice, Head and Pubic Additional Instructions: Take medication as prescribed. Follow-up with a primary care physician. Take ibuprofen or Tylenol for your pain. Can also use ice. Scripts Permethrin (PERMETHRIN) 60 Gm Cream..g. 1 BO TP ONCE, #60 GM 1 Refill PUT IN HAIR AND SCALP AND LEAVE ON X 10MINUTES AND RINSE. MAY REPEAT AGAIN IN 10 DAYS. Prov: GIL ROMAN APRN 01/27/20 Justicifation of Admission Dx: Justifications for Admission: Justification of Admission Dx: N/A (GIL ROMAN APRN) Attending Signature Attending Signature I have reviewed the PA/CONSTRUCTION IRONWORKER's note and plan of care. I was available for consultation as needed during the patient's visit in the emergency department. I agree with the clinical impression, plan, and disposition. (DESIREE VAN DO) GIL ROMAN APRN Jan 27, 2020 14:26 DESIREE VAN DO Jan 28, 2020 06:58
--- NOTE | 2020-01-27 15:09 | RAD ---
Right shoulder 3 views: Reason for examination: Pain. No acute fracture or dislocation is seen. The bone density is normal. No abnormal periosteal reaction is seen. Joint spaces are maintained. IMPRESSION: No acute abnormality evident at the right shoulder. Right humerus 2 views: There is no evidence of fracture. The bone density is normal. No abnormal periosteal reaction is seen. Shoulder and elbow joints appear to be maintained. IMPRESSION: No acute abnormality seen at the right humerus. Electronically signed by: Jessy Payne MD (01/27/2020 3:06 PM) [facility]
[2020-01-27] MEDS ORDERED: PERM60CR12 TP (15:21)
== END 2020-01-27 15:46 | disposition home or self-care (01) ==
LOC: ER 13:26
DX: M25.511 Pain in right shoulder (principal); L29.9 Pruritus, unspecified; F32.9 Major depressive disorder, single episode, unspecified; M79.7 Fibromyalgia; Z90.710 Acquired absence of both cervix and uterus; Z98.51 Tubal ligation status; Z98.890 Other specified postprocedural states; Z91.041 Radiographic dye allergy status
CPT/HCPCS: 73030; 73060; 99284